=== PATIENT | female | born 1950 | race Caucasian/White ===

== ENCOUNTER 2020-11-18 11:32 | Emergency (ER) | payer MEDICARE, BC, OTHER ==
[~2020-11-18] VITALS: Ht 157.5 cm; Wt 75.9 kg
[2020-11-18 11:33] VITALS: BP 175/82
[2020-11-18] MEDS ORDERED: SYNT50TA PO (11:43)
[2020-11-18] MEDS ORDERED: IRBE300T12 PO (11:43)
[2020-11-18] MEDS ORDERED: ESTR62CR PV (14:42)
== END 2020-11-18 15:24 | disposition home or self-care (01) ==
LOC: M ED 11:32
DX: N95.2 Postmenopausal atrophic vaginitis (principal); I10 Essential (primary) hypertension; E03.9 Hypothyroidism, unspecified; Z79.899 Other long term (current) drug therapy; Z79.890 Hormone replacement therapy; Z88.1 Allergy status to other antibiotic agents; Z88.8 Allergy status to other drugs, medicaments and biological substances

== ENCOUNTER → 2020-12-02 | Outpatient (REF) | payer MEDICARE, BC, OTHER ==
[~2020-12-02] MED LIST: ESTR62CR PV; IRBE300T12 PO; SYNT50TA PO
[2020-12-02 17:38] LABS: APPEARANCE, URINE CLEAR (CLEAR); BACTERIA, URINE AUTO NEGATIVE (NEGATIVE); BILIRUBIN, URINE AUTO NEGATIVE (NEGATIVE); BLOOD, URINE BLOOD NEGATIVE (NEGATIVE); COLOR, URINE YELLOW (YELLOW); GLUCOSE, URINE (UA) AUTO NEGATIVE (NEGATIVE); KETONE, URINE AUTO NEGATIVE (NEGATIVE); LEUKOCYTE ESTERASE, URINE AUTO NEGATIVE (NEGATIVE); NITRITE, URINE AUTO NEGATIVE (NEGATIVE); PROTEIN, URINE AUTO NEGATIVE (NEGATIVE); RBC, URINE AUTO 1 /HPF (0-3); SPECIFIC GRAVITY URINE AUTO 1.012 (1.002-1.035); SQUAMOUS EPITHELIAL CELL UR AU 1 /HPF (0-6); UROBILINOGEN, URINE AUTO 0.2 mg/dL (0.0-2.0); WBC, URINE AUTO 0 /HPF (0-3)
== END ==
LOC: M SMT 16:52
PROVIDERS: ATTEND Nurse Practitioner Family
DX: R10.2 Pelvic and perineal pain (principal)
CPT/HCPCS: 51798; 81001; 87086; G0463